=== PATIENT | female | born 1980 | race Asian ===

== ENCOUNTER 2019-02-13 09:57 | Emergency (ER) | payer SELFPAY ==
[~2019-02-13] VITALS: Ht 170.2 cm; Wt 55.8 kg
[2019-02-13 10:14] VITALS: Ht 170.2 cm; Wt 55.8 kg
[2019-02-13 11:21] VITALS: BP 119/68
== END 2019-02-13 11:21 | disposition home or self-care (01) ==
LOC: ED 09:57
DX: Z76.0 Encounter for issue of repeat prescription (principal); F32.9 Major depressive disorder, single episode, unspecified